=== PATIENT | male | born 1970 | race Caucasian/White ===

== ENCOUNTER 2018-06-23 12:36 | Emergency (ER) | payer OTHER ==
[2018-06-23 12:59] VITALS: BP 120/60
--- NOTE | 2018-06-23 13:03 | UC ---
Laceration HPI - HPI Summary HPI Summary: 47 yo with finger laceration. Right index, distal phalanx, volar; 1.5 cm. Well approximated. Not bleeding. - History Of Current Complaint Chief Complaint: EDAbdPain Stated Complaint: FINGER LACERATION Time Seen by Provider: 06/23/18 12:51 Pain Intensity: 2 - Allergies/Home Medications Allergies/Adverse Reactions: Allergies Allergy/AdvReac Type Severity Reaction Status Date / Time No Known Allergies Allergy Verified 06/23/18 12:59 PMH/Surg Hx/FS Hx/Imm Hx - Additional Past Medical History Additional PMH: Patient denies any significant past medical history. Previously Healthy: Yes - Surgical History Surgical History: None - Social History Alcohol Use: Daily Substance Use Type: None Smoking Status (MU): Never Smoked Tobacco Review of Systems All Other Systems Reviewed And Are Negative: Yes Constitutional: Positive: Negative Skin: Positive: Negative Eyes: Positive: Negative ENT: Positive: Negative Respiratory: Positive: Negative Cardiovascular: Positive: Negative Gastrointestinal: Positive: Negative Genitourinary: Positive: Negative Motor: Positive: Negative Neurovascular: Positive: Negative - no cms injury. Musculoskeletal: Positive: Negative Neurological: Positive: Negative Psychological: Positive: Negative Is Patient Immunocompromised?: No Physical Exam Triage Information Reviewed: Yes Appearance: Well-Appearing Vital Signs: Initial Vital Signs Temp 98.3 F 06/23/18 12:48 Pulse 81 06/23/18 12:48 Resp 16 06/23/18 12:48 BP 120/60 06/23/18 12:48 Pulse Ox 100 06/23/18 12:48 Eye Exam: Normal ENT Exam: Normal Dental Exam: Normal Neck exam: Normal Neck: Positive: 1 Respiratory Exam: Normal Respiratory: Positive: Chest non-tender, Lungs clear, Normal breath sounds Cardiovascular Exam: Normal Cardiovascular: Positive: RRR, No Murmur, Pulses Normal Abdominal Exam: Normal Abdomen Description: Positive: Nontender, No Organomegaly, Soft Musculoskeletal Exam: Normal Neurological Exam: Normal Psychological Exam: Normal Skin: Positive: Significant Lesion(s) - right index, volar, distal: 1.5 cm well approximated lac from sharp kitchen knife. Laceration Repair - Laceration Repair cleaned; skin adhesive used to repaire 1.5 cm lac; no bleeding; well approximated; CMS INTACT; dressed. Description: Linear Cleansing Completed Via Routine Prep: Yes Closure Material: Skin Adhesive Laceration Course/Dx - Course/Dx Course Of Treatment: 47 yo with finger laceration. Right index, distal phalanx , volar; 1.5 cm. Well approximated. Not bleeding. Wound approximated with skin adhesive. No bleeding or CMS deficit. Boostrix given. - Differential Dx - Laceration/Wound Differental Diagnoses: Laceration - Diagnosis Provider Diagnosis: Finger laceration Discharge - Sign-Out/Discharge Documenting (check all that apply): Patient Departure All imaging exams completed and their final reports reviewed: No Studies - Discharge Plan Condition: Stable Disposition: HOME Patient Education Materials: Diphtheria/Acellular Pertussis/Tetanus Booster Vaccine (By injection), Skin Adhesive Care (ED) Referrals: No Primary Care Phys,NOPCP [Primary Care Provider] - Additional Instructions: See attached information. Recheck at any time for increased pain, redness or swelling or other evidence of infection. - Billing Disposition and Condition Condition: STABLE Disposition: Home
[2018-06-23] MEDS ORDERED: Tetan/Diph/Pertus SYR(Tdap)* 0.5 ML SYR(BOOSTRIX) use SYR IM ONE (13:18)
== END 2018-06-23 13:32 | disposition home or self-care (01) ==
LOC: UCEAST 12:36
DX: S61.210A Laceration without foreign body of right index finger without damage to nail, initial encounter (principal); W45.8XXA Other foreign body or object entering through skin, initial encounter; Y92.9 Unspecified place or not applicable; Z23 Encounter for immunization
CPT/HCPCS: 12001; 90471; 90715; 99202; G0463